=== PATIENT | female | born 1970 ===

== ENCOUNTER 2019-08-28 16:06 | Emergency (ER) | payer OTHER ==
[~2019-08-28 16:06] MED LIST: Iopamidol-370 76% 500 ML 1 ML ONE
[2019-08-28 16:46] LABS: #Lymphocytes 0.9 thou/uL (1.20-3.40); #Monocytes 0.4 thou/uL (0.11-0.59); #Neutrophils 15.7 thou/uL (1.40-6.50); %Basophils 0.1 % (0.0-1.0); %Monocytes 2.5 % (0.0-10.0); %Neutrophils 92.4 % (42.0-75.0); Hemoglobin 9.1 g/dL (12.0-16.0); Mean Corpuscular HGB CONC 30.2 g/dL (32.0-36.0); Mean Corpuscular Volume 62.7 fL (78.0-98.0); Platelet Count 293 thou/uL (130-400); RBC Distribution Width 17.3 % (11.5-14.5); Red Blood Cell (RBC) Count 4.81 mill/uL (4.20-5.40); White Blood Cell (WBC) Count 16.9 thou/uL (4.8-10.8)
[2019-08-28 17:12] LABS: ALT (SGPT) 15 U/L (8-55); AST (SGOT) 12 U/L (5-34); Albumin 4.7 g/dL (3.5-5.0); Alkaline Phosphatase 86 U/L (40-110); Anion Gap 12 mmol/L (10-20); BUN (Urea Nitrogen) 9 mg/dL (7.0-18.7); Bilirubin, Total 0.4 mg/dL (0.2-1.2); Calc. Creatinine Clearance 0 mL/min (70-130); Calcium 9.3 mg/dL (7.8-10.44); Carbon Dioxide 23 mmol/L (22-29); Chloride 105 mmol/L (98-107); Estimated GFR-MDRD 83; Globulin 3.5 g/dL (2.4-3.5); Glucose 153 mg/dL (70-105); Potassium 3.3 mmol/L (3.5-5.1); Protein, Total 8.2 g/dL (6.0-8.3); Sodium 137 mmol/L (136-145)
[2019-08-28 17:15] LABS: Anisocytosis SLIGHT = 6-15 cells (100X) (0-5/hpf); Elliptocytes SLIGHT = 2-5 cells (100X) (0-1/hpf); Hypochromia MODERATE=16-30 cells (100X) (0-5/hpf); Large Platelets SLIGHT; MDiff Complete? YES; Microcytosis MODERATE=15-30 cells (100X) (0-5/hpf); Ovalocytes SLIGHT = 2-5 cells (100X) (0-1/hpf); Platelet Morphology Comment Appears Adequate; Poikilocytosis SLIGHT = 6-15 cells (100X) (0-5/hpf); Polychromasia SLIGHT = 2-3 cells (100X) (0-2/hpf); Tear Drops SLIGHT = 2-5 cells (100X) (0-1/hpf)
[2019-08-28 17:38] LABS: Bacteria/HPF None Seen HPF (None Seen); Bilirubin Negative (Negative); Blood, Urine 1+ (Negative); Clarity Clear (Clear); Glucose, Urine (Dipstick) 300 mg/dL (Negative); Leukocyte Negative Leu/uL (Negative); Mucous/LPF Rare LPF (<2+); Nitrite Negative (Negative); Protein, Urine (Dipstick) 30 mg/dL (Neg-Trace); RBC/HPF 21-50 HPF (0-3); Squamous Epithelial 0-3 HPF (0-3); Urobilinogen Normal mg/dL (Less than 2); WBC/HPF 0-3 HPF (0-3)
[2019-08-28 17:39] LABS: Pregnancy Test - Urine (BHCG) Negative (Negative); Pregu Control Background? CLEAR/WHITE (CLR/WHITE); Pregu Control Bar Appear? YES (CONTROL BAR); Specific Gravity 1.028 (1.002-1.036)
--- NOTE | 2019-08-28 18:16 | CT ---
CT ABDOMEN AND PELVIS PERFORMED WITH CONTRAST ENHANCEMENT: 08/28/19 HISTORY: Right sided abdomen pain. Onset approximately 1300 hours today. The lung bases are clear. The liver, spleen, pancreas, and gallbladder regions show no focal abnormalities. Right and left adrenal glands and right and left kidneys are normal in size. There is no significant periaortic or mesenteric lymphadenopathy. The appendix appears more retrocecal in location and normal in appearance. CT OF PELVIS PERFORMED WITH CONTRAST ENHANCEMENT: The uterus is enlarged. It measures approximately 11.7 cm in length. There appears to be some impress ion on the endometrium. I cannot exclude the possibility there may be fibroids. No free fluid or adam opathy. IMPRESSION: 1. Enlarged uterus. 2. Normal appendix. POS: [facility] [place]
--- NOTE | 2019-08-28 19:36 | ULT ---
TRANSABDOMINAL AND TRANSVAGINAL PELVIC ULTRASOUND WITH WHITAKER SCALE, COLOR FLOW AND SPECTRAL DOPPLER IM AGIN08/28/19 HISTORY: 48-year-old female with right sided pelvic pain. FINDINGS: The uterus measures 10.1 x 5.4 x 5.6 cm with a mass consistent with fibroid in the right side of the fundus measuring 1.9 x 1.3 x 1.6 cm. No endometrial mass or fluid is seen. The endometrium measures 1 1 mm in thickness. The right ovary measures 1.7 x 1.9 x 2.3 cm and the left ovary measures 2.1 x 1.5 x 3 cm. There is fl ow to both ovaries. No adnexal mass or free fluid in the cul-de-sac is seen. There are Nabothian cyst s in the cervix measuring up to 9 mm. IMPRESSION: Uterine fibroid. POS: OFF
== END 2019-08-28 19:38 | disposition home or self-care (01) ==
LOC: ERS 16:06
DX: D25.9 Leiomyoma of uterus, unspecified (principal)
CPT/HCPCS: 74177; 76856; 80053; 81003; 81015; 81025; 85025; 85060; Q9967